=== PATIENT | female | born 1955 | race Caucasian/White ===

== ENCOUNTER → 2019-11-14 11:41 | Outpatient (CLI) | payer BC, SELFPAY ==
--- NOTE | ~2019-11-14 | XR_ITS ---
EXAMINATION: XR wrist LT min 3V DATE: 11/14/2019 11:54 INDICATION: Left wrist pain. TECHNIQUE: 4 views of left wrist were obtained. COMPARISON: None. FINDINGS: Bone alignment is normal. No fracture. There is mild osteoarthritis of triscaphe joint and lunate-capitate joint. IMPRESSION: 1. Mild polyarticular osteoarthritis. Reviewed, dictated and finalized at location A.
== END ==
PROVIDERS: PCP Family Medicine; Visit Provider Family Medicine
DX: M19.032 Primary osteoarthritis, left wrist (principal)
CPT/HCPCS: 73110

== ENCOUNTER 2020-11-19 10:57 | Emergency (ER) | payer BC, SELFPAY ==
--- NOTE | ~2020-11-19 | XR_ITS ---
XR finger 1st LT min 2V DATE: 11/19/2020 11:28 INDICATION: Distal thumb pain for 5 days. Possible jammed thumb. TECHNIQUE: 3 views COMPARISON: 11/14/2019 left wrist FINDINGS: There is osteophyte is at the first metacarpophalangeal and interphalangeal joints. No fracture or dislocation, periosteal reaction or bone destruction. IMPRESSION: Osteoarthritis Reviewed, dictated and finalized at location B. IMPRESSION: Osteoarthritis
[2020-11-19 11:16] VITALS: BP 139/78; PULSE 122; RESP 22; TEMP 37.1; O2SAT 98
--- NOTE | 2020-11-19 11:20 | ED.UPPEXIN ---
HPI - Extremity Injury (Upper) General Chief Complaint: Extremity Injury, Upper Stated Complaint: LEFT THUMB PAIN Source: patient Mode of arrival: ambulatory History of Present Illness HPI narrative: This is a 65-year-old female that presented to urgent care with complaints of left arm pain. According to patient Monday she jammed her hand into an object afterwards she started to experience pain she did take Tylenol at home with little relief she notes that approximately 3-4 times a night she woke up with throbbing pain to that left. Patient does have range of motion as with that the pulses are possible and sensations are present no neurovascular deficiency noted. She does not have any open injuries to the site she does have an artificial nail in place it does not appear to be any trauma to her nail or nailbed. The patient denies SOB, CP, palpitation, extremity numbness, lightheadedness, dizziness, constipation, diarrhea, chills, or fever. MD complaint: injury to: left Related Data Allergies Allergy/AdvReac Type Severity Reaction Status Date / Time No Known Allergies Allergy Unverified 07/20/15 08:58 Review of Systems Review of Systems: A 14 organ system Review of Systems was performed and pertinent positives included in the HPI, otherwise remaining ROS is negative. [facility] Past Medical History Medical History Bronchitis Bruises easily Chicken pox Dizziness Emphysema, unspecified Hepatitis A High blood cholesterol Migraine Mumps Pneumonia Poor circulation Family History Family History Father , 73 Heart failure Mother , 89 Alzheimer disease Social History Social History (Updated 05/01/20 @ 10:58 by Kylie Witt) Social History: Patient drinks 2-3 cups of caffeine daily Smoking packs per day: 1 Smoking cigarettes per day: 20.0 Years smoked: 45 Smoking pack-years: 45.00 Smoking status: Current every day smoker Tobacco type: cigarettes Alcohol intake: unknown Substance use: never Substance use type: does not use 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 HEAD: normocephalic, atraumatic. EYES: PERRL. Sclera clear/white. Vision is grossly intact. EARS: External ears normal, auditory canals clear and without drainage, TMs normal without perforation. Hearing grossly intact. NOSE: External nose normal with no obvious nasal discharge, nares without redness, no rhinorrhea. THROAT: Mucous membranes moist, posterior pharynx clear. NECK: Neck supple, non-tender without lymphadenopathy, masses or thyromegaly. CARDIOVASCULAR: Regular rate and rhythm without murmurs, gallops, or rubs. RESPIRATORY: Clear to auscultation. Breath sounds equal bilaterally. No wheezes, rales, or rhonchi. GASTROINTESTINAL: Abdomen soft, non-tender, nondistended. Bowel sounds are active. No hepato-splenomegaly, or palpable masses. No guarding. SKIN: warm, intact with no suspicious lesions or rash, good texture and turgor. NEURO: awake, alert, and oriented to person, place and time. There were no obvious focal neurologic abnormalities. Steady gait EXTREMITIES: Normal range of motion. No edema. No calf tenderness. Negative Homans sign bilaterally. 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 BACK: Nontender without deformity or crepitance. No flank tenderness. Course Vital Signs Vital signs: Vital Signs Temperature 98.7 F 11/19/20 11:16 Pulse Rate 122 H 11/19/20 11:16 Respiratory Rate 22 H 11/19/20 11:16 Blood Pressure 139/78 11/19/20 11:16 Pulse Oximetry 98 11/19/20 11:16 Temperature 98.7 F 11/19/20 11:16 Pulse Rate 122 H 11/19/20 11:16 Respiratory Ra
== END 2020-11-19 11:56 | disposition home or self-care (01) ==
PROVIDERS: Emergency Provider Nurse Practitioner
DX: S69.92XA Unspecified injury of left wrist, hand and finger(s), initial encounter (principal); W22.8XXA Striking against or struck by other objects, initial encounter; F17.210 Nicotine dependence, cigarettes, uncomplicated; J43.9 Emphysema, unspecified; E78.00 Pure hypercholesterolemia, unspecified
CPT/HCPCS: 29130; 73140; 99213; G0463

== ENCOUNTER 2021-11-29 04:24 | Day surgery (SDC) | payer BC, SELFPAY ==
--- NOTE | 2021-11-29 07:45 | P.PNAN_ITS ---
Anes - Initial Pre Proc Eval Procedure: Operation Date: 11/29/21 09:00 Proposed Procedures p Screening Colonoscopy - Fabio He MD Date/Time: 11/29/21 07:45 Surgeon: Fabio He MD Pre Op Diagnosis: neoplasm screening Patient Data Age: 66 Gender: F Height: Weight: Allergies Allergy/AdvReac Type Severity Reaction Status Date / Time No Known Allergies Allergy Verified 11/29/21 08:00 Home Medications Medication Instructions Recorded Confirmed Type atorvastatin 10 mg tablet See Rx Instructions .Route 07/12/21 11/18/21 Rx .COMPLEX #90 tabs lisinopril 10 mg tablet 10 mg PO DAILY #90 tabs 08/09/21 11/18/21 Rx albuterol sulfate 90 mcg/actuation 1 inh inhalation Q4H PRN shortness 10/06/21 11/18/21 Rx aerosol inhaler (Ventolin HFA) of breath or wheezing #8.5 grams Patient hx anesthesia problems: none Family hx anesthesia problems: none Results Review: All pre-operative results and documents have been reviewed as part of the pre- operative evaluation. [facility] Past Medical History Medical History (Updated 11/29/21 @ 07:45 by Hunter Mensah DO) Bronchitis Bruises easily Chicken pox Dizziness Emphysema, unspecified Hepatitis A High blood cholesterol HTN (hypertension) Migraine Mumps Pneumonia Poor circulation Surgical History Surgical History (Updated 11/29/21 @ 07:45 by Hunter Mensah DO) History of tubal ligation Family History Family History Father , 73 Heart failure Mother , 89 Alzheimer disease Social History Social History Social History: Patient drinks 2-3 cups of caffeine daily Smoking packs per day: 1 Smoking cigarettes per day: 20.0 Years smoked: 16 Smoking pack-years: 16.00 Smoking status: Current every day smoker Tobacco type: cigarettes Alcohol intake: unknown Substance use: current Substance use type: marijuana Last use: 11/14/2021 Living arrangements: alone 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 Gender identity (if verbalized by the patient): Female Sexual Orientation (if Verbalized by the Patient): Straight or Heterosexual Anes - Eval Final PreProcedure Day of Procedure 11/29/21 07:45 Patient weight: overweight Heart: regular rate and rhythm Lungs: clear to auscultation Airway: Mallampati scale class II Neurological: alert and oriented Last oral intake: >/= 8 hours ASA classification: III Emergent: no Anesthetic plan: proceed Anesthesia type and monitoring: general GIVS and standard monitoring Results Review: All pre-operative results and documents have been reviewed as part of the pre- operative evaluation. Informed Consent: The patient's anesthetic plan and its attendant risks and benefits were discussed with the patient/family/POA. Questions were solicited and answers provided to the satisfaction of the patient/family/POA.
[2021-11-29 08:05] VITALS: BP 156/75; PULSE 89; RESP 18; TEMP 36.6; O2SAT 97
[2021-11-29] MEDS: LACTATED RINGERS 1,000 ML 150 ML IV CONT (08:16)
--- NOTE | 2021-11-29 08:41 | PM.HPGS ---
History of Present Illness History of Present Illness Consent: Risks, benefits, and alternatives have been discussed and questions answered. Patient agrees to proceed with procedure. Chief complaint: neoplasm screening Narrative: Cass Loza is a 66 year old female here for first screening colonoscopy Review of Systems Constitutional: Constitutional: Denies headache(s) and Denies weakness Eyes: Eyes: Denies blurry vision ENT: Reports Normal hearing present, Denies headache(s) and Denies neck pain Cardiovascular: Cardiovascular: Denies chest pain and Denies dyspnea Respiratory: Respiratory: Denies dyspnea Gastrointestinal: Gastrointestinal: Reports no additional gastrointestinal complaints Genitourinary: Genitourinary: Denies dysuria Musculoskeletal: Musculoskeletal: Denies neck pain Integumentary/Breasts: Skin/Breast: Denies dry skin Neurologic: Reports Normal hearing present, Denies headache(s) and Denies weakness Psychiatric: Psychiatric: Denies anxiety Endocrine: Endocrine: Denies change in body appearance Hematologic/Lymphatic: Hematologic/Lymphatic: Denies easy bleeding Allergic/Immunologic: Allergic/Immunologic: Denies urticaria PMFSH Past Medical History Medical History (Updated 11/29/21 @ 07:45 by Hunter Mensah DO) Bronchitis Bruises easily Chicken pox Dizziness Emphysema, unspecified Hepatitis A High blood cholesterol HTN (hypertension) Migraine Mumps Pneumonia Poor circulation Surgical History Surgical History (Updated 11/29/21 @ 07:45 by Hunter Mensah DO) History of tubal ligation Family History Family History Father , 73 Heart failure Mother , 89 Alzheimer disease Social History Social History Social History: Patient drinks 2-3 cups of caffeine daily Smoking packs per day: 1 Smoking cigarettes per day: 20.0 Years smoked: 16 Smoking pack-years: 16.00 Smoking status: Current every day smoker Tobacco type: cigarettes Alcohol intake: unknown Substance use: current Substance use type: marijuana Last use: 11/14/2021 Living arrangements: alone 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 Gender identity (if verbalized by the patient): Female Sexual Orientation (if Verbalized by the Patient): Straight or Heterosexual Meds Home Medications and Allergies Home Medications Medication Instructions Recorded Confirmed Type atorvastatin 10 mg tablet See Rx Instructions .Route 07/12/21 11/18/21 Rx .COMPLEX #90 tabs lisinopril 10 mg tablet 10 mg PO DAILY #90 tabs 08/09/21 11/18/21 Rx albuterol sulfate 90 mcg/actuation 1 inh inhalation Q4H PRN shortness 10/06/21 11/18/21 Rx aerosol inhaler (Ventolin HFA) of breath or wheezing #8.5 grams Allergies Allergy/AdvReac Type Severity Reaction Status Date / Time No Known Allergies Allergy Verified 11/29/21 08:00 Vital Signs Vital Signs - 24 hr 11/29/21 08:05 Temperature 97.8 F Pulse Rate 89 Respiratory Rate 18 Blood Pressure 156/75 H Pulse Oximetry 97 Oxygen Delivery Room Air Exam Const: General: comfortable and no acute distress HENMT: General nose exam: Normal nares present Eyes: General: appearance normal, both eyes and all related structures Neck: Neck: no JVD Resp: Auscultation: clear to auscultation bilaterally Cardio: Rate: regular rate Rhythm: regular rhythm GI: Inspection: non-distended GI Palp: Yes Soft to palpation Skin: General skin exam: normal color Neuro: General: gait normal Speech: normal speech Extrem: General: normal to inspection Psych: Mental Status: mental status grossly normal Assessment and Plan Assessment and plan (1) Colon cancer screening: Code(s): Z12.11 - Encounter for screening for malignant neoplasm of colon Status: Acute Assessme
[2021-11-29 08:57] VITALS: BP 122/59; PULSE 90; RESP 18; O2SAT 100
[2021-11-29 09:07] VITALS: BP 123/61; PULSE 92; RESP 25; O2SAT 100
[2021-11-29 09:17] VITALS: BP 124/62; PULSE 90; RESP 24; O2SAT 100
== END 2021-11-29 09:27 | disposition home or self-care (01) ==
PROVIDERS: PCP Emergency Medicine; Visit Provider Internal Medicine Gastroenterology
PROC: 0DJD8ZZ Inspection of Lower Intestinal Tract, Via Natural or Artificial Opening Endoscopic (ICD-10-PCS; CPT 45378; principal; 2021-11-29 09:00)
DX: Z12.11 Encounter for screening for malignant neoplasm of colon (principal); K64.8 Other hemorrhoids; J43.9 Emphysema, unspecified; I10 Essential (primary) hypertension; K75.9 Inflammatory liver disease, unspecified; F17.210 Nicotine dependence, cigarettes, uncomplicated; F12.90 Cannabis use, unspecified, uncomplicated; Z79.51 Long term (current) use of inhaled steroids
CPT/HCPCS: 45378; J2704; J7120

== ENCOUNTER 2022-07-17 18:25 | Emergency (ER) | payer BC, SELFPAY ==
[2022-07-17 18:34] VITALS: BP 186/72; PULSE 124; RESP 18; TEMP 37.1; O2SAT 96
--- NOTE | 2022-07-17 18:56 | ED.UPPEXIN ---
HPI - Extremity Injury (Upper) General Chief Complaint: Extremity Injury, Upper Stated Complaint: Right Shoulder Pain Time Seen by Provider: 07/17/22 18:56 Source: patient Mode of arrival: ambulatory Limitations: no limitations History of Present Illness HPI narrative: 66-year-old female presents with complaint of right shoulder pain starting 3 days ago. Getting progressively worse. Denies injury. States she has not done anything out of the ordinary. Patient taking [id number] Tylenol and ibuprofen without relief of pain. Pain worse with movement. does have a primary care physician for follow-up. All Systems reviewed and negative except as noted above. Related Data Allergies Allergy/AdvReac Type Severity Reaction Status Date / Time No Known Allergies Allergy Verified 07/17/22 18:39 Review of Systems Review of Systems: CONSTITUTIONAL: Denies fever, chills, or sweats. EYES: Denies visual changes, redness, or discharge. ENT: Denies rhinorrhea, congestion, sore throat, or otalgia. CARDIOVASCULAR: Denies chest pain, palpitations, or edema. RESPIRATORY: Denies cough or dyspnea. GASTROINTESTINAL: Denies abdominal pain, nausea, vomiting, or diarrhea. GENITOURINARY: Denies dysuria or hematuria. SKIN: Denies rash or itching. MUSCULOSKELETAL: Denies back pain, , or myalgia. reports right shoulder pain. NEUROLOGIC: Denies headache, numbness, or weakness. PSYCHIATRIC: Denies anxiety or depression. All other systems reviewed are negative, except as documented in HPI. [facility] Past Medical History Medical History (Updated 07/17/22 @ 19:09 by Rhina Oates NP) Bronchitis Bruises easily Chicken pox Dizziness Emphysema, unspecified Hepatitis A High blood cholesterol HTN (hypertension) Migraine Mumps Pneumonia Poor circulation Surgical History Surgical History (Updated 11/29/21 @ 07:45 by Hunter Mensah DO) History of tubal ligation Family History Family History Father , 73 Heart failure Mother , 89 Alzheimer disease Social History Social History Social History: Patient drinks 2-3 cups of caffeine daily Smoking packs per day: 1 Smoking cigarettes per day: 20.0 Years smoked: 16 Smoking pack-years: 16.00 Smoking status: Current every day smoker Tobacco type: cigarettes Alcohol intake: unknown Substance use: current Substance use type: marijuana Last use: 11/14/2021 Living arrangements: alone Occupation/Education: occupation 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 There is no relevant family history pertinent to the presenting complaint. Exam Narrative: GENERAL: This is a well-nourished, well-developed patient, in no apparent distress. HEAD: normocephalic, atraumatic. EYES: PERRL. Sclera clear/white. Vision is grossly intact. EARS: External ears normal NOSE: External nose normal NECK: Neck supple, non-tender without lymphadenopathy, masses or thyromegaly. CARDIOVASCULAR: Regular rate and rhythm without murmurs, gallops, or rubs. RESPIRATORY: Clear to auscultation. Breath sounds equal bilaterally. No wheezes, rales, or rhonchi. SKIN: warm, Dry, intact with no suspicious lesions or rash, good texture and turgor. NEURO: awake, alert, and oriented to person, place and time. There were no obvious focal neurologic abnormalities. EXTREMITIES: tenderness to R shoulder anterior aspect at bursa with mild swelling noted. no erythema or warmth. ROM decreased due to pain. no weakness. Course Course Level of Care: Express Care Visit Vital Signs Vital signs: Vital Signs Tempera
[2022-07-17 19:09] VITALS: BP 155/68; PULSE 109; RESP 18; O2SAT 98
[2022-07-17] MEDS: KETOROLAC 30 MG/ML VIAL (*BKC) IM (19:14)
== END 2022-07-17 19:41 | disposition home or self-care (01) ==
PROVIDERS: Emergency Provider Nurse Practitioner Family; PCP Emergency Medicine
DX: M25.511 Pain in right shoulder (principal); F17.210 Nicotine dependence, cigarettes, uncomplicated; J43.9 Emphysema, unspecified; E78.00 Pure hypercholesterolemia, unspecified; I10 Essential (primary) hypertension
CPT/HCPCS: 96372; 99213; G0463; J1885

== ENCOUNTER 2022-07-20 11:44 | Outpatient (CLI) | payer BC, SELFPAY ==
--- NOTE | ~2022-07-20 | XR_ITS ---
EXAM: XR shoulder RT min 2V DATE: 07/20/2022 12:37 HISTORY: M25.511 - Pain in right shoulder . COMPARISON: X-ray chest 07/07/2016. FINDINGS: Decreased mineralization. No fracture or dislocation. No lytic or blastic lesion. Mild deg enerative changes at the AC joint and glenohumeral joint. Amorphous calcification in the distal rotat or cuff. Acromial tip enthesopathy. No erosion or periosteal change. Soft tissues within normal limit s. IMPRESSION: Calcific rotator cuff tendinitis. Mild polyarticular osteoarthritis of the right shoulder . Reviewed, dictated and finalized at location K. IMPRESSION: Calcific rotator cuff tendinitis. Mild polyarticular osteoarthritis of the right shoulder.
== END 2022-07-20 11:45 ==
LOC: MICIMG 11:46
PROVIDERS: PCP Emergency Medicine; Visit Provider Emergency Medicine
DX: M25.511 Pain in right shoulder (principal); M75.81 Other shoulder lesions, right shoulder; M15.9 Polyosteoarthritis, unspecified
CPT/HCPCS: 73030

== ENCOUNTER 2022-08-09 11:45 | Outpatient (CLI) | payer BC, SELFPAY ==
--- NOTE | ~2022-08-09 | XR_ITS ---
EXAMINATION: XR chest 2V Exam Date/Time: 08/09/2022 11:49 CDT HISTORY: R07.1 - Chest pain on breathing Comparison: 07/07/2016. RESULT: Lines, tubes, and devices: None. Lungs and pleura: Senescent and emphysematous change. Calcified right lower lobe granuloma. Cardiomediastinal silhouette: Stable. Other: No acute osseous or upper abdominal finding. IMPRESSION: No acute cardiopulmonary process. Reviewed, dictated and finalized at location K.
== END 2022-08-09 11:46 ==
LOC: MICIMG 11:47
PROVIDERS: PCP Emergency Medicine; Visit Provider Emergency Medicine
DX: R07.1 Chest pain on breathing (principal)
CPT/HCPCS: 71046

== ENCOUNTER 2022-08-25 11:40 | Outpatient (CLI) | payer BC, SELFPAY ==
--- NOTE | ~2022-08-25 | US_ITS ---
Thyroid ultrasound. Clinical History: Abnormal findings of blood chemistry Findings: Real-time sonography of the thyroid gland was performed. The right lobe measures 2.5 x 1.0 x 1.2 cm. The left lobe measures 3.0 x 1.0 x 1.1 cm. The isthmus is 2 mm in AP diameter. Thyroid parenchyma is heterogeneous. There is a 5 mm cystic nodule at the right midpole. There is a 4 mm cystic nodule in the left upper pole. Impression: Subcentimeter thyroid nodules, which require no further follow-up.. Reviewed, dictated and finalized at location . Impression: Subcentimeter thyroid nodules, which require no further follow-up..
== END 2022-08-25 11:41 ==
LOC: MICIMG 11:41
PROVIDERS: PCP Emergency Medicine; Visit Provider Emergency Medicine
DX: R79.89 Other specified abnormal findings of blood chemistry (principal); E04.2 Nontoxic multinodular goiter
CPT/HCPCS: 76536

== ENCOUNTER 2024-11-07 11:42 | Outpatient (CLI) | payer MEDICARE, SELFPAY ==
--- NOTE | ~2024-11-07 | MM_ITS ---
EXAMINATION: screening [facility] BI w kevin INDICATION: Asymptomatic, referred for screening mammogram COMPARISON: Baseline TECHNIQUE: Digital Breast Tomosynthesis CC, MLO views of Both breasts were obtained with computer-ai ded detection to assist in interpretation of the study. FINDINGS: There are scattered areas of fibroglandular density. There is a mass in the upper outer left breast at posterior depth. There is a prominent lymph node p artially imaged in the right axilla. Elsewhere, there are no mammographic features of malignancy. IMPRESSION: 1. Left breast Mass. 2. Prominent right axillary lymph node. RECOMMENDATION: Left breast ultrasound Right axillary ultrasound BI-RADS Category 0: Incomplete: Needs additional imaging evaluation. Reviewed, dictated and finalized at location B.
== END 2024-11-07 11:43 | disposition home or self-care (01) ==
LOC: MICIMG 11:42
PROVIDERS: PCP Emergency Medicine; Visit Provider Emergency Medicine
DX: Z12.31 Encounter for screening mammogram for malignant neoplasm of breast (principal); R92.8 Other abnormal and inconclusive findings on diagnostic imaging of breast
CPT/HCPCS: 77063; 77067

== ENCOUNTER 2025-01-20 08:03 | Outpatient (CLI) | payer MEDICARE, SELFPAY ==
--- NOTE | ~2025-01-20 | DEXA_ITS ---
Bone Density Report Name: TANA CENTENO Age: 69 Sex: Female Ethnicity: White Date of : 1955 Indication: postmenopausal; screening for osteoporosis; height loss; Referring Provider: DAISY SIMMONS Study: Bone densitometry was performed. Exam Date: January 20, 2025 Accession number: [id number] Bone Density: Region BMD T-score Z-score Classification AP Spine(L1-L4) 1.125 0.7 2.6 Normal Femoral Neck (Left) 0.626 -2.0 -0.4 Osteopenia Total Hip (Left) 0.790 -1.2 0.1 Osteopenia Femoral Neck (Right) 0.582 -2.4 -0.8 Osteopenia Total Hip (Right) 0.772 -1.4 0.0 Osteopenia Total Hip Mean 0.781 -1.3 0.1 Osteopenia World Health Organization criteria for BMD impression classify patients as: Normal (T-score at or above -1.0), Osteopenia (T-score between -1.0 and -2.5), or Osteoporosis (T-score at or below -2.5). 10-year Fracture Risk(1): Major Osteoporotic Fracture 14% Hip Fracture 4.4% Reported Risk Factors: [place] (), Neck BMD=0.582, BMI=23.5, smoking (1) FRAX(R) Version 3.08. Fracture probability calculated for an untreated patient. Fracture probability may be lower if the patient has received treatment. Clinical Information Provided by Patient: Smokes Patient maximum height was 66 Menopause Age: 47 No regular weight bearing exercise Drinks caffeinated beverages Onset of menses at age 16 Number of children 3 Impression: The patient has low bone mass, based on the Right Femoral Neck T-score. The patient has an estimated ten-year risk of hip fracture of 4.4% and an estimated ten-year risk of major fracture of 14%, based on the WHO FRAX algorithm. The patient has risk factors, including: smoking. Discussion: BONE DENSITY IS LOW AT ONE OR MORE SKELETAL SITES. THE PATIENT'S BMD AND CLINICAL RISK FACTORS CONTRIBUTE TO THIS PATIENT'S INCREASED RISK OF FRACTURE. This patient's lowest T-score is low at one or more skeletal sites. It meets the World Health Organization's (WHO) criteria for ?low bone mass? (T-score between -1.0 and -2.5). The patient's 10-year risk of hip fracture as calculated by FRAX exceeds the threshold where pharmacological therapy is recommended by the National Osteoporosis Foundation (NOF). However, all treatment decisions require clinical judgment and consideration of individual patient factors, including patient preferences, comorbidities, previous drug use, risk factors not captured in the FRAX model (e.g., frailty, falls, vitamin D deficiency, increased bone turnover, interval significant decline in bone density) and possible under or overestimation of fracture risk by FRAX. The patient should follow a healthful lifestyle (good nutrition with adequate calcium and vitamin D, and appropriate weight-bearing exercise). Follow-Up: Consider a repeat BMD and Vertebral Fracture Assessment (VFA) exam in 2 years or sooner if medically necessary, to reassess this patient's status. Reported by: IZZY on 01/20/2025 8:46:00 AM. Reviewed, dictated and finalized at location A.
== END 2025-01-20 08:04 | disposition home or self-care (01) ==
LOC: ANHFOHIMG 08:07
PROVIDERS: PCP Emergency Medicine; Visit Provider Emergency Medicine
DX: M85.89 Other specified disorders of bone density and structure, multiple sites (principal); Z78.0 Asymptomatic menopausal state
CPT/HCPCS: 77080

== ENCOUNTER 2025-02-03 13:29 | Outpatient (CLI) | payer MEDICARE, SELFPAY ==
--- NOTE | ~2025-02-03 | US_ITS ---
EXAMINATION: US breast LT limited, US axilla RT HISTORY: 69-year-old female with BI-RADS 0, callback from screening to evaluate left breast mass and prominent right axillary lymph node. COMPARISON: 11/07/2024 FINDINGS: Targeted ultrasound at the areas of the concern was completed. In the left breast at 2:00, 8 cm from the nipple, corresponding to the mammographic finding there is a lymph node with predominant fatty hilum and thin cortices. In the right axilla there is a prominent lymph node with predominant fatty hilum which correlates to the mammographic finding. IMPRESSION: 1. Left breast benign-appearing intramammary lymph node correlates to the mammographic finding. 2. Benign-appearing right axillary lymph node correlates to the mammographic finding. BI-RADS 2, BENIGN Recommend continued screening mammography in 12 months. Reviewed, dictated and finalized at location B. IMPRESSION: 1. Left breast benign-appearing intramammary lymph node correlates to the mamm ographic finding. 2. Benign-appearing right axillary lymph node correlates to the mammographic f inding. BI-RADS 2, BENIGN Recommend continued screening mammography in 12 months.
== END 2025-02-03 13:30 | disposition home or self-care (01) ==
LOC: MICIMG 13:29
PROVIDERS: PCP Emergency Medicine; Visit Provider Emergency Medicine
DX: R59.0 Localized enlarged lymph nodes (principal)
CPT/HCPCS: 76642; 76882

== ENCOUNTER 2025-03-18 09:44 | Emergency (ER) | payer MEDICARE, SELFPAY ==
[2025-03-18] VITALS (9 sets, daily range): BP systolic 157–183; BP diastolic 56–81; PULSE 98–170; RESP 18–36; TEMP 36.5; O2SAT 92–97
--- NOTE | ~2025-03-18 | XR_ITS ---
EXAMINATION: XR chest 2V, 03/18/2025 10:[address] COMMISSIONER HISTORY: SOB COMPARISON: No comparisons available. Technique: 2 views obtained. Findings: Minimal lingular infiltrate. No pneumothorax. Heart is normal size. Mediastinal and hilar contours are within normal limits. Bony thorax no acute abnormality. Impression: Probable lingular pneumonia Reviewed, dictated and finalized at location P. ET COMMISSIONER Impression: Probable lingular pneumonia
--- NOTE | 2025-03-18 09:46 | ECG_ITS ---
Test Date: 2025-03-18 09:52:23 Measurements Intervals [place] Rate: 150 P: -86 AK: 125 QRS: 94 QRSD: 82 T: -73 QT: 251 QTc: 397 Interpretive Statements ATRIAL FLUTTER/TACHYCARDIA WITH RAPID VENTRICULAR RESPONSE RIGHT AXIS DEVIATION ST-T WAVE ABNORMALITY IN INFERIOR LEADS- CONSIDER ISCHEMIA OR RATE RELATED BASELINE ARTIFACT- I, II, III, AVR, AVF ABNORMAL ECG No previous ECG available for comparison Electronically Signed On 03-18-2025 09:55:52 MARINE MACHINIST by Humphrey Schofield D.O.
[2025-03-18 10:01] LABS: Hematocrit 44.3 % (37.0-47.0); Hemoglobin 14.8 g/dL (12.0-15.0); Immature Granulocyte Percent A 0.4 % (0-0.5); Lymphocytes Absolute Auto 2.99 K/mm3 (0.9-3.2); Mean Corpuscular HGB Conc 33.4 g/dl (32-36); Mean Corpuscular Hemoglobin 32.1 pg (26-34); Mean Corpuscular Volume 96.1 fl (80-100); Nucleated Red Blood Cells Absolute Auto 0.000 K/mm3 (0.0-0.012); Nucleated Red Blood Cells Perc 0.0 % (0.0-0.2); Platelet Count Result 302 k/mm3 (150-375); Red Blood Count 4.61 M/mm3 (4.2-5.4); White Blood Count 21.8 K/mm3 (4.5-10.0)
--- NOTE | 2025-03-18 10:03 | ECG_ITS ---
Test Date: 2025-03-18 10:06:49 Measurements Intervals [place] Rate: 109 P: 80 NH: 134 QRS: 87 QRSD: 80 T: 1 QT: 310 QTc: 418 Interpretive Statements SINUS TACHYCARDIA POSSIBLE LEFT ATRIAL ENLARGEMENT CANNOT R/O SEPTAL INFARCT, AGE INDETERMINATE ST-T WAVE ABNORMALITY IN INFERIOR LEADS- CONSIDER ISCHEMIA ABNORMAL ECG Compared to ECG 03/18/2025 09:52:23 ATRIAL FLUTTER NO LONGER PRESENT Electronically Signed On 03-18-2025 10:20:47 SENIOR SOLUTIONS CONSULTANT by Humphrey Schofield D.O.
[2025-03-18 10:16] LABS: Alanine Aminotransferase 52 U/L (6-35); Albumin Level 4.6 g/dL (3.5-5.1); Alkaline Phosphatase 143 U/L (38-126); Anion Gap 8 mmol/L (4-12); Aspartate Amino Transferase 70 U/L (14-36); Bilirubin,Total 0.8 mg/dL (0.2-1.3); Blood Urea Nitrogen 13 mg/dL (7-17); Calcium 10.2 mg/dL (8.4-10.2); Carbon Dioxide 23 mmol/L (22-30); Chloride 104 mmol/L (98-107); Estimated CRCL calculation 68 ml/min; Estimated Glomerular Filt Rate > 60; Glucose 130 mg/dL (65-110); Potassium 4.0 mmol/L (3.4-5.0); Sodium 135 mmol/L (137-145); Total Protein 8.7 g/dL (6.3-8.2)
[2025-03-18 10:24] LABS: Schistocytes None Seen
--- OUTSIDE RECORDS SUMMARY | 2025-03-18 10:24 | XMS_ITS | Data Portability ---
Author Organization [place] [facility] [place] [facility], Main Office Address [address] [place] [address] Care Team Providers Care Inspector Water Pollution Control Name Role Phone DAISY SIMMONS Primary Care Provider DAISY SIMMONS Referring Provider Assessment Encounter Date Assessment Date Assessment LastModified by Organization Details LastModified Time 08/05/2022 08/05/2022 Impression: Patient had episode of severe constant right shoulder pain few weeks ago that fortunately improved with oral steroids and tramadol. She is not taking anything for pain currently. She is now doing very well except she still has her morning numbness in her hand and occasional nocturnal awakening with numbness and pain. Her morning numbness and tingling in the hand and occasional nocturnal awakening with pain in the arm feeling the pain going up to the front of the shoulder from her hand is a very typical complaint of someone who has carpal tunnel syndrome. It is somewhat surprising however that the provocative maneuvers performed today were all negative for carpal tunnel syndrome. Differential diagnosis would include also cervical radiculopathy. Her in stinks made her feel that she probably had a pinched nerve in her neck causing her complaints that she had 3 weeks ago. She is not having any neck pain and her examination of the neck does not show radicular symptoms on provocative test. I recommended that she right down exactly which fingers are numb in the morning when she wakes up and which parts for hand are numb. That will help us to stop doing wish between cubital tunnel syndrome and carpal tunnel syndrome some degree. I recommended that she try a cock-up splint at night while she is in bed sleeping will see if that helps which should should if it is carpal tunnel syndrome causing her tingling in the morning. I have talked her about the option of proceeding with a nerve conduction velocity test EMG. That may be helpful in confirming the suspicion of carpal tunnel syndrome or possibly showing evidence of radiculopathy. If findings suggesting radiculopathy were noted an MRI scan of her cervical spine would be obtained to see if there is a lesion that correlates with the particular nerve root. She feels she has had symptoms for 2 years of the numbness and tingling and this has been bothering her a great deal and she would like to proceed with the nerve conduction velocity test mg. Will order this for her. I recommended that she stop smoking completely at this time. I have discussed her that smoking causes the discs of the cervical spine to rot and smoking impedes the blood flow in the microcirculation which predisposes to carpal tunnel syndrome and peripheral nerve problems. Quitting smoking would have a numerable health benefits for her at this time. She does have a bit of a productive cough today. She would not commit to so quitting at this time but she acknowledged that quitting smoking at this time would be very beneficial for her health. 60 minutes were spent in total care this patient more than half the time spent in [id number] care. [email or web address] Not available 08/05/2022 20:40:37 Plan of Treatment Reminders Order Date Submit Date Provider Last Modified By Organization Details Last Modified Time Details Appointments None record ed. Lab None record ed. Referral None record ed. Procedures None record ed. Surgeries None record ed. Imaging None record ed. Medication Orders None record ed. Patient TargetsNo targets recorded. Patient InstructionsNo instructions recorded. Reason for Referral None Reported. Results Created Date Observation Date Name Description Value Unit Range Abnormal Flag Note LastModifiedBy Organization Detail LastModifiedTime 07/23/1907/20/2022 XR, shoul leoncio, 2 or more view No observ ation record ed. [email or web address] Not Available 10/2022 10:59:25 Result Notes None recorded. Problems Name Problem SNOMED Code Status Onset Date Resolution Date Notes Provider Name and Address Organization Details Recorded Time Pain of right shoulder joint [id number] 00 Active 2022 BRODIE Adame, [place] [facility] [employer] 10:52:43 Problem Notes None recorded. Medical Equipment None Reported. Medications Name Sig Start Date Stop Date Status Note LastModified by Organization Details LastModified Time atorvastati n 10 mg tablet TAKE 1 TABLET BY MOUTH EVERY DAY active Not Available Not Available No t Available azithromyci n 250 mg tablet 08/05 completed Not Available Not Available Not Available prednisone 20 mg tablet TAKE 1 TABLET BY MOUTH DAILY FOR 7 DAYS. 08/05 completed Not Available Not Available Not Available tramadol 50 mg tablet TAKE 1 TABLET BY MOUTH EVERY 6 HOURS NEEDED FOR PAIN. 08/05 completed Not Available Not Available Not Available lisinopril 10 mg tablet TAKE 1 TABLET BY MOUTH EVERY DAY active Not Available Not Available No t Available albuterol sulfate HFA 90 mcg/actuati on aerosol inhaler INHALE 1 PUFF INTO THE LUNGS EVERY 4 HOURS NEEDED FOR SHORTNESS OF BREATH OR WHEEZING 08/05 completed Not Available Not Available Not Available Vitals Date Recorded Body height Body mass index (BMI) Body weight Provider Name and Address Organization Details Last Updated DateTime 08/05/2022 165.1 cm 19 kg/m2 85161.53 g BRODIE Adame [place] [facility] 08/05/2022 11:19:58 Social History None recorded. Functional Status Question Answer Note LastModified by Organization D etails LastModified Time What is your level of alcohol consumption? None Information not available 08/05/2022 Mental Status None recorded. Family History Relationship Description Onset Age of this Age Resolved Age Notes LastModified by Organization Details LastModified Time Father Heart disease [email or web address] Not available 2022 10:51:15 Father Hypertensive disorder Not available 2022 10:51:41 Brother Family history of malignant neoplasm [email or web address] Not available 2022 10:51:30 Sister Family history of malignant neoplasm [email or web address] Not available 2022 10:51:30 Mother Hypertensive disorder [email or web address] Not available 2022 10:51:41 Medical History Condition Response ARTHRITIS Y Gynecological HistoryNo gynecological history recorded. Obstetrics History GPAL:G 0 P 0 0 0 0 Past Encounters Encounter ID Performer Location Encounter Start Date Encounter Closed Date Diagnosis/Indication Diagnosis SNOMED-CT Code Diagnosis ICD10 Code Diagnosis IMO Codes Diagnosis Note [id number] Viktor Garcia MD [facility] [place] [place] [address] [place] [address] 08/05/2022 10:29:06 08/08/2022 09:54:41 Pain of right shoulder joint [id number] M25.511 Health Concerns Section Related Observation LastModified by Organization Detjackson ls LastModified Time None Recorded Concern Status LastModified by Organization Details LastModified Time None Recorded Advance Directives Directive None Recorded Payers Insurance Date Sequence Insurance Name Policy Number Policy Ordaz Covered Member ID Ordaz Member ID Guarantor Name 08/16/[address] [facility] [id number] Cass Loza [id number] aCss Loza Notes Date Note Type Note Provider Name and Address Organization Details Recorded Time 08/05/2022 text/html Patient is a 66-year-old female referred by Dr. Simmons for evaluation of her right shoulder. Patient started having symptoms 3 weeks ago in the anterolateral right shoulder. She recalls that the night before the onset of her symptoms she awoke about every hour and did not know why she was awakening. The next morning she had slight tenderness in her right shoulder. At the end the day she had such severe pain she could not lift her arm. It got better by the evening again and then she had another bad night and the next day her pain was so severe she went to the urgent care. The nurse practitioner gave her an injection and oral steroids and tramadol and within a few days she felt much much better. She could move her shoulder and had less pain overall. She notes that when she had the severe pain that was excruciating and she could find a comfortable position. Did not matter whether she was using her arm or at rest it was relentless. Last week she felt depleted and very tired and weak and started having more coughing and believe she was developing exacerbation of bronchitis which she has had in the past and an antibiotic has been called in for her and she picks at up today and she is going to be following up next week with Dr. Simmons. She has a 2 year history of nocturnal awakening with her right hand feeling numb and tingly. Intermittently she will have 2 or 3 days were she will wake up in the middle the night in the entire right arm feels and painful from her fingertips up to her shoulder. 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 She is not sure if she has any numbness that is constant through the day but the numbness and tingling will linger for a few hours in the mornings. She estimates that she wakes up in the morning with the numbness in her hand approximately 3 times a week and suspects that there is always a slight numbness tingling feeling when she 1st wakes up. Her past medical history is significant for smoking 1 pack of cigarettes per day for last 50 years. She is very thin 5 ft 5 in in height 114 lb BMI of 19. 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 She had x-rays of the right shoulder on 07/20/2022 which demonstrated a 1 mm speck of calcification just above the lateral aspect of the greater tuberosity on the AP view and minimal hypertrophic changes at the glenohumeral joint AC joint and suggestion osteopenia. Viktor Garcia MD [address] [place] [address], [place] [address], [place], [address], [place] [facility] [place] [facility] 08/05/2022 20:40:59 OBGyn Episode No OBEpisode recorded.
[2025-03-18] MEDS: SODIUM CHLORIDE 0.9% IV 1,000 ML 999 ML IV CONT (10:25)
[2025-03-18 10:28] LABS: Stomatocytes Occasional
[2025-03-18 10:56] LABS: Troponin I < 0.012 ng/mL (0.000-0.034)
[2025-03-18] MEDS: cefTRIAXone 1 GM in SODIUM CHLORIDE 0.9% IV 50 ML 100 ML IVPB (11:16)
[2025-03-18] MEDS: AZITHROMYCIN 500 MG TABLET PO (11:17)
--- NOTE | 2025-03-18 14:53 | ED_ITS ---
HPI - SOB/Dyspnea General Chief Complaint: Shortness of Breath/Dyspnea Stated Complaint: sob Time Seen by Provider: 03/18/25 09:55 History of Present Illness HPI Narrative: Patient presents here with a few days of cough, some shortness of breath, she has multiple family and friends who are having similar viral symptoms. No chest pain. Related Data Allergies Allergy/AdvReac Type Severity Reaction Status Date / Time No Known Allergies Allergy Verified 03/18/25 09:54 Review of Systems 2 Review of Systems: All systems reviewed & are unremarkable except as noted in HPI and below PMFSH Past Medical History Medical History URI with cough and congestion HTN (hypertension) Bruises easily Poor circulation Dizziness Pneumonia Mumps Migraine High blood cholesterol Hepatitis A Emphysema, unspecified Chicken pox Bronchitis Surgical History Surgical History History of tubal ligation Family History Family History Father , 73 Heart failure Mother , 89 Alzheimer disease Social History Social History Social History: Patient drinks 2-3 cups of caffeine daily Smoking packs per day: 1 Smoking cigarettes per day: 20.0 Years smoked: 16 Smoking pack-years: 16.00 Smoking status: Current every day smoker Tobacco type: cigarettes Alcohol intake: never Substance use: current Substance use type: marijuana Other substance usage details: occasional use Lack of Transportation: No Lack of Food: Never True Current Housing: Decline to Answer Concerned About Future Housing: Decline to Answer Difficulty Paying Gas/Electric Bills: Decline to Answer Difficulty Paying for Meds: Decline to Answer Currently Unemployed: Decline to Answer Education: Decline to Answer Difficulty w/ Childcare or Family Care: Decline to Answer Living arrangements: alone Occupation/Education: occupation 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 EYES: EOMI, conjunctiva normal ENT: Hearing grossly intact LUNGS: Nonlabored breathing. HEART: Tachycardic ABD: [Soft], [nontender to palpation] EXT: Normal range of motion SKIN: [No rashes or lesions.] NEURO: [Alert. No gross focal sensory or strength deficits.] PSYCH: Normal affect Course Vital Signs Vital signs: Vital Signs Temperature 97.7 F 03/18/25 09:49 Pulse Rate 170 H 03/18/25 09:49 Respiratory Rate 36 H 03/18/25 09:49 Blood Pressure 183/81 H 03/18/25 09:49 Oxygen Delivery Room Air 03/18/25 09:49 Temperature 97.7 F 03/18/25 09:49 Pulse Rate 105 H 03/18/25 11:29 Respiratory Rate 20 03/18/25 11:29 Blood Pressure 175/69 H 03/18/25 11:29 Pulse Oximetry 97 03/18/25 10:32 Oxygen Delivery Room Air 03/18/25 09:49 MDM MDM Narrative Medical decision making narrative: Patient presenting with cough and shortness of breath, with multiple other sick contacts. Denies any chest pain. Found to be quite tachycardic, EKG - 12-Lead: Performed at 0952. Interpreted by me. Atrial flutter. Rate 150. Right axis. MO-interval 125. QRS duration 82. QTc 397. [No ST segment elevation or depression]. [T-wave normal]. She is immediately placed on monitors, crash cart at bedside, since she is denying any chest pain or palpitations, and she is hemodynamically stable, we will try medical management at this time. No history of heart failure. IV fluids and Cardizem given, patient immediately converted to sinus rhythm. EKG - 12-Lead: Performed at 1006. Interpreted by me. [Sinus rhythm]. Rate 109. [Normal] axis. MO-interval [normal]. QRS duration [normal]. QTc [normal]. Some potential ST depression/T-wave flattening in inferior leads. Patient still denies any chest pain. She says that her symptoms have been ongoing for about a week at this time, troponin and D-dimer both negative. Chest x-ray showing possible pneumonia, which is in line with her symptoms, so I will start her on antibiotics, have her follow-up with her primary care doctor and Cardiology with strict return precautions. Patient and family agreeable to plan. Differential Diagnosis Differential Diagnosis: Viral syndrome, tachyarrhythmia, PE, ACS, pneumonia Lab Data 03/18/25 09:55 03/18/25 09:55 Labs: Lab Results 03/18/25 Range/Units 09:55 WBC 21.8 H (4.5-10.0) K/mm3 RBC 4.61 (4.2-5.4) M/mm3 Hgb 14.8 (12.0-15.0) g/dL Hct 44.3 (37.0-47.0) % MCV 96.1 (80-100) fl MCH 32.1 (26-34) pg MCHC 33.4 (32-36) g/dl RDW 12.0 (11.5-14.5) % Plt Count 302 (150-375) k/mm3 MPV 9.6 (7.4-10.4) fl Immature Gran % (Auto) 0.4 (0-0.5) % Neut % (Auto) 77.3 H (45.5-73.1) % Lymph % (Auto) 13.7 L (18.3-44.2) % [place] % (Auto) 8.0 (2.6-8.5) % Eos % (Auto) 0.3 (0-4.4) % Baso % (Auto) 0.3 (0.2-1.2) % Lymph # (Auto) 2.99 (0.9-3.2) K/mm3 [place] # (Auto) 1.8 H (0.1-0.6) K/mm3 Eos # (Auto) 0.1 (0-0.3) K/mm3 Baso # (Auto) 0.1 (0.0-0.1) K/mm3 Abs Immat Gran (auto) 0.09 H (0.00-0.031) K/mm3 Absolute Neuts (auto) 16.8 H (1.3-6.7) K/mm3 Absolute Nucleated RBC 0.000 (0.0-0.012) K/mm3 Band Neutrophils % Not Reportable Nucleated RBC % 0.0 (0.0-0.2) % Atypical Lymphocytes Present Platelet Estimate Adequate (Adequate) Stomatocytes Occasional Schistocytes None seen D-Dimer 0.33 (<0.48) ug/mL Sodium 135 L (137-145) mmol/L Potassium 4.0 (3.4-5.0) mmol/L Chloride 104 (98-107) mmol/L Carbon Dioxide 23 (22-30) mmol/L Anion Gap 8 (4-12) mmol/L BUN 13 (7-17) mg/dL Creatinine 0.64 L (0.7-1.0) mg/dL Estim Creat Clear Calc 68 ml/min Estimated GFR > 60 (59 - ) Glucose 130 H (65-110) mg/dL Calcium 10.2 (8.4-10.2) mg/dL Total Bilirubin 0.8 (0.2-1.3) mg/dL AST 70 H (14-36) U/L ALT 52 H (6-35) U/L Alkaline Phosphatase 143 H (38-126) U/L Troponin I < 0.012 (0.000-0.034) ng/mL Total Protein 8.7 H (6.3-8.2) g/dL Albumin 4.6 (3.5-5.1) g/dL Imaging Data Radiologist's impression: ITS Impressions Chest X-Ray 03/18/25 10:20 Impression: Probable lingular pneumonia Critical Care Time Critical Care Time Critical Care Time: Yes Indication: Tachyarrhythmia Initial evaluation, discuss w/ involved parties, attempting to gather old records: 10 minutes Documenting medical record: 5 minutes Review of results (EKG's, labs, imaging): 5 minutes Serial repeat bedside evaluation: 10 minutes Discussing case with multiple memebers of the care team and consultants: 5 minutes Total Critical Care Time: 35 Discharge Plan Discharge Clinical Impression: Pneumonia, Atrial flutter Patient Disposition: Home Condition: Stable Instructions: Antibiotic Form, Atrial Flutter (ED), Pneumonia (ED) Additional Instructions: Please take the medications as prescribed, and follow up with the landscape management technician. If your symptoms return, if you feel like your heart is racing or you cannot breathe, or if you start having chest pain or anything else concerning, please return to the ER. Patient Language: Honduran Prescriptions: New azithromycin 250 mg tablet 250 mg PO DAILY 4 Days Qty: 4 0RF Rx Instructions: start on day 2 of therapy amoxicillin-pot clavulanate 875-125 mg tablet 1 tablet PO Q12H Qty: 10 0RF No Action atorvastatin 10 mg tablet See Rx Instructions .ROUTE .COMPLEX Qty: 90 2RF Dose Instruction: TAKE 1 TABLET BY MOUTH EVERY DAY Rx Instructions: TAKE 1 TABLET BY MOUTH EVERY DAY cholecalciferol (vitamin D3) 50 mcg (2,000 unit) capsule 100 mcg PO DAILY Qty: 180 2RF albuterol sulfate 90 mcg/actuation HFA aerosol inhaler See Rx Instructions .ROUTE .COMPLEX Qty: 25.5 2RF Dose Instruction: INHALE 1 PUFF INTO THE LUNGS EVERY 4 HOURS NEEDED FOR SHORTNESS OF BREATH OR WHEEZING Rx Instructions: INHALE 1 PUFF INTO THE LUNGS EVERY 4 HOURS NEEDED FOR SHORTNESS OF BREATH OR WHEEZING lisinopril 10 mg tablet See Rx Instructions .ROUTE .COMPLEX Qty: 90 2RF Dose Instruction: TAKE 1 TABLET BY MOUTH EVERY DAY Rx Instructions: TAKE 1 TABLET BY MOUTH EVERY DAY fluticasone propionate 50 mcg/actuation spray,suspension See Rx Instructions .ROUTE .COMPLEX Qty: 48 2RF Dose Instruction: 1 SPRAY INTRANASALLY TWICE A DAY ADMINISTER INTO EACH NOSTRIL Rx Instructions: 1 SPRAY INTRANASALLY TWICE A DAY ADMINISTER INTO EACH NOSTRIL Follow-up/Referrals: Carl Molina MD [Primary Care Provider, Internal Medicine] - 2 Days Hayley Cohen MD [Physician, Cardiology] - 2 Days
== END 2025-03-18 11:37 | disposition home or self-care (01) ==
PROVIDERS: Emergency Provider Emergency Medicine; PCP Emergency Medicine
DX: J18.9 Pneumonia, unspecified organism (principal); I48.92 Unspecified atrial flutter; I10 Essential (primary) hypertension; E78.00 Pure hypercholesterolemia, unspecified; J43.9 Emphysema, unspecified; F17.210 Nicotine dependence, cigarettes, uncomplicated; Z79.899 Other long term (current) drug therapy; R94.31 Abnormal electrocardiogram [ECG] [EKG]; R00.0 Tachycardia, unspecified
CPT/HCPCS: 36415; 71046; 80053; 84484; 85025; 85380; 93005; 96361; 96365; 96375; 99284; J0696; J1163; J7030

== ENCOUNTER 2025-04-12 06:00 | Emergency (ER) | payer MEDICARE, SELFPAY ==
--- NOTE | ~2025-04-12 | CT_ITS ---
CT lumbar spine CLINICAL HISTORY: Left sciatica Technique: Lumbar spine Sagittal and coronal reformats. No contrast CT images acquired with automatic exposure control for dose reduction DLP: 234 mGy-cm Comparison: None Findings: No fracture. Trace grade 1 retrolisthesis of L1 on 2, L2 on 3. Disc disease L4-5, L5-S1. Moderate multilevel degenerative changes. Bilateral renal stones. Colonic diverticula. Aortoiliac atherosclerotic disease. IMPRESSION: 1. No acute abnormality. 2. Renal stones. Reviewed, dictated and finalized at location R. ODUCT ENGINEER
[2025-04-12 06:03] VITALS: BP 161/90; PULSE 85; RESP 14; TEMP 36.4; O2SAT 97
--- NOTE | 2025-04-12 07:20 | ED.GENADULT ---
HPI - General Adult General Chief complaint: Extremity Problem,Nontraumatic Stated complaint: L leg pain from hip to knee Time Seen by Provider: 04/12/25 07:13 Source: patient Mode of arrival: ambulatory Limitations: no limitations History of Present Illness HPI narrative: 69 years old white female came from home by private car with her complaining of burning pain left buttocks, left hip old way down to left knee more worse since Thanksgiving, scheduled to see a doctor in 10 days, history of left sciatica, patient believed this is different than her CS CT pain. Patient denies any fever, chills, nausea, vomiting, trauma. Pain worse with certain activities and position, better with heating pad and sometime walking. She denies any fever, chills, nausea, vomiting, or recent trauma. Related Data Allergies Allergy/AdvReac Type Severity Reaction Status Date / Time No Known Allergies Allergy Verified 04/12/25 06:01 Review of Systems Review of Systems: All systems reviewed & are unremarkable except as noted in HPI and below PMFSH Past Medical History Medical History URI with cough and congestion HTN (hypertension) Bruises easily Poor circulation Dizziness Pneumonia Mumps Migraine High blood cholesterol Hepatitis A Emphysema, unspecified Chicken pox Bronchitis Surgical History Surgical History History of tubal ligation Family History Family History Father , 73 Heart failure Mother , 89 Alzheimer disease Social History Social History Social History: Patient drinks 2-3 cups of caffeine daily Smoking packs per day: 1 Smoking cigarettes per day: 20.0 Years smoked: 16 Smoking pack-years: 16.00 Smoking status: Current every day smoker Tobacco type: cigarettes Alcohol intake: never Substance use: current Substance use type: marijuana Other substance usage details: occasional use Lack of Transportation: No Lack of Food: Never True Current Housing: Decline to Answer Concerned About Future Housing: Decline to Answer Difficulty Paying Gas/Electric Bills: Decline to Answer Difficulty Paying for Meds: Decline to Answer Currently Unemployed: Decline to Answer Education: Decline to Answer Difficulty w/ Childcare or Family Care: Decline to Answer Living arrangements: alone Occupation/Education: occupation 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 Musculoskeletal: Diffuse tenderness left buttock, no bruises, no swelling, no rash Neurologic: Alert and oriented ?3, positive left leg raising test Course Vital Signs Vital signs: Vital Signs Temperature 36.4 C 04/12/25 06:03 Pulse Rate 85 04/12/25 06:03 Respiratory Rate 14 04/12/25 06:03 Blood Pressure 161/90 H 04/12/25 06:03 Pulse Oximetry 97 04/12/25 06:03 Oxygen Delivery Room Air 04/12/25 06:03 Temperature 36.4 C 04/12/25 06:03 Pulse Rate 85 04/12/25 06:03 Respiratory Rate 14 04/12/25 06:03 Blood Pressure 161/90 H 04/12/25 06:03 Pulse Oximetry 97 04/12/25 06:03 Oxygen Delivery Room Air 04/12/25 06:03 [facility] MDM Narrative Medical decision making narrative: Differential diagnosis includes sciatica, sacroiliitis, musculoskeletal, metastasis CT lumbar spine showed Differential Diagnosis Differential Diagnosis: As above Discharge Plan Discharge Clinical Impression: Left lumbar radiculopathy Patient Disposition: Home Condition: Stable Instructions: Lumbar Radiculopathy (ED), Lower Back Exercises (ED) Additional Instructions: Return if symptoms are worsening , call your family physician for appointment, take Tylenol, ibuprofen as as needed for aches and pain, continue home medications. Patient Language: Spanish Prescriptions: New dexamethasone 4 mg tablet 4 mg PO Q8H Qty: 14 0RF cyclobenzaprine 10 mg tablet 10 mg PO TID PRN (Reason: muscle spasm) Qty: 20 0RF ondansetron 4 mg tablet,disintegrating 4 mg PO Q4H 0 Days Qty: 10 0RF Rx Instructions: give 1st dose 30min before emetogenic chemo No Action metoprolol succinate [Toprol XL] 25 mg tablet extended release 24 hr 25 mg PO DAILY Qty: 90 2RF atorvastatin 10 mg tablet See Rx Instructions .ROUTE .COMPLEX Qty: 90 2RF Dose Instruction: TAKE 1 TABLET BY MOUTH EVERY DAY Rx Instructions: TAKE 1 TABLET BY MOUTH EVERY DAY cholecalciferol (vitamin D3) 50 mcg (2,000 unit) capsule 100 mcg PO DAILY Qty: 180 2RF albuterol sulfate 90 mcg/actuation HFA aerosol inhaler See Rx Instructions .ROUTE .COMPLEX Qty: 25.5 2RF Dose Instruction: INHALE 1 PUFF INTO THE LUNGS EVERY 4 HOURS NEEDED FOR SHORTNESS OF BREATH OR WHEEZING Rx Instructions: INHALE 1 PUFF INTO THE LUNGS EVERY 4 HOURS NEEDED FOR SHORTNESS OF BREATH OR WHEEZING lisinopril 10 mg tablet See Rx Instructions .ROUTE .COMPLEX Qty: 90 2RF Dose Instruction: TAKE 1 TABLET BY MOUTH EVERY DAY Rx Instructions: TAKE 1 TABLET BY MOUTH EVERY DAY fluticasone propionate 50 mcg/actuation spray,suspension See Rx Instructions .ROUTE .COMPLEX Qty: 48 2RF Dose Instruction: 1 SPRAY INTRANASALLY TWICE A DAY ADMINISTER INTO EACH NOSTRIL Rx Instructions: 1 SPRAY INTRANASALLY TWICE A DAY ADMINISTER INTO EACH NOSTRIL Follow-up/Referrals: Carl Molina MD [Primary Care Provider, Internal Medicine]
--- OUTSIDE RECORDS SUMMARY | 2025-04-12 07:33 | XMS_ITS | Data Portability ---
Author Organization [facility], Main Office Address [address] [place] [address] Care Team Providers Care Sheep Sorter Name Role Phone DAISY SIMMONS Primary Care Provider DAISY SIMMONS Referring Provider [phone] Assessment Encounter Date Assessment Date Assessment LastModified [...] more than half the time spent in [id number] care. [email or web address] Not available 08/05/2022 20:40:37 Plan [...] Recorded Time Pain of right shoulder joint [id number] 00 Active 2022 BRODIE Adame, [facility] 10:52:43 Problem Notes None recorded. Medical Equipment [...] Updated DateTime 08/05/2022 165.1 cm 19 kg/m2 49680.53 g BRODIE Adame [facility] 08/05/2022 11:19:58 Social History None recorded. Functional Status Question Answer Note LastModified by Organization D etails LastModified Time What is your level of alcohol consumption? None [email or web address] Information not available 08/05/2022 Mental Status None recorded. Family History Relationship Description Onset Age of this Age Resolved Age Notes LastModified by Organization Details LastModified Time Father Heart disease [email or web address] Not available 2022 10:51:15 Father Hypertensive disorder [email or web address] Not available 2022 10:51:41 Brother Family history of malignant neoplasm [email or web address] Not available 2022 10:51:30 Sister Family history of malignant neoplasm [email or web address] Not available 2022 10:51:30 Mother Hypertensive disorder [email or web address] Not available 2022 10:51:41 Medical History Condition Response ARTHRITIS Y Gynecological HistoryNo gynecological history recorded. Obstetrics History GPAL:G 0 P 0 0 0 0 Past Encounters Encounter ID Performer Location Encounter Start Date Encounter Closed Date Diagnosis/Indication Diagnosis SNOMED-CT Code Diagnosis ICD10 Code Diagnosis IMO Codes Diagnosis Note [id number] Viktor Garcia MD [facility] [address] [place] [address] 08/05/2022 10:29:06 08/08/2022 09:54:41 Pain of right shoulder joint [id number] M25.511 Health Concerns Section Related Observation LastModified by Organization Detjackson ls LastModified Time None Recorded Concern Status LastModified by Organization Details LastModified Time None Recorded Advance Directives Directive None Recorded Payers Insurance Date Sequence Insurance Name Policy Number Policy Ordaz Covered Member ID Ordaz Member ID Guarantor Name 08/16/2022 1 [facility] [id number] Cass Loza [id number] Cass Loza Notes Date Note Type Note Provider [...] her shoulder. 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 She is [...] BMI of 19. 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 She had x-rays of the right shoulder on 07/20/2022 which demonstrated a 1 mm speck of calcification just above the lateral aspect of the greater tuberosity on the AP view and minimal hypertrophic changes at the glenohumeral joint AC joint and suggestion osteopenia. Viktor Garcia MD [address] [place] [address], [place] [address], [place], [address], [facility] [employer] [facility] [employer] [facility] 08/05/2022 20:40:59 OBGyn Episode No OBEpisode recorded.
[2025-04-12] MEDS: dexAMETHasone SOD PHOS INJ 10 MG/ML 1 ML VIAL IM (07:42)
[2025-04-12] MEDS: ONDANSETRON HCL ODT 4 MG TABLET PO ×2 (07:42→10:37)
[2025-04-12] MEDS: HYDROmorphone HCL INJ (*CRX) 1 MG/ML SYR IM (07:42)
--- NOTE | 2025-04-12 10:08 | PC.NURSE ---
Pts was being confrontational towards this RN, stating they have been here for 5 hours and is wondering what is taking so long. This RN told pts we were waiting on her CT report to come back. Pts then asked how long until the report came back. I then stated that I was unsure, then called CT, they stated they would reach out to the radiologist. Pts then approached this RN stating, we're waiting on you.
[2025-04-12 10:53] VITALS: BP 158/88; PULSE 80; RESP 16; TEMP 36.4; O2SAT 98
== END 2025-04-12 10:54 | disposition home or self-care (01) ==
PROVIDERS: Emergency Provider Emergency Medicine; PCP Emergency Medicine
DX: M54.16 Radiculopathy, lumbar region (principal); I10 Essential (primary) hypertension; E78.00 Pure hypercholesterolemia, unspecified; J43.9 Emphysema, unspecified; F17.210 Nicotine dependence, cigarettes, uncomplicated; Z87.01 Personal history of pneumonia (recurrent)
CPT/HCPCS: 72131; 96372; 99284; A9270; J1100; J1171